=== PATIENT | female | born 1960 | race Caucasian/White ===

== ENCOUNTER → 2018-07-01 | Outpatient (CLI) | payer OTHER ==
--- NOTE | 2018-07-01 18:09 | Diagnostic Imaging Report ---
Exam: Right hip 2 views History: Pain Comparison: None. Findings: No fracture or malalignment. 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 No abnormal soft tissue calcification or soft tissue defect. Impression: No acute osseous abnormality Signed by: Dr. Ashok Morales M.D. on 07/01/2018 6:05 PM
== END ==
LOC: RAD 16:26
PROVIDERS: ATTEND Internal Medicine
DX: M25.551 Pain in right hip (principal)

== ENCOUNTER → 2019-07-11 | Outpatient (CLI) | payer OTHER ==
--- NOTE | 2019-07-11 15:18 | Diagnostic Imaging Report ---
Exam: PA and lateral chest radiograph Clinical history: Pneumonia Findings: Left upper lobe opacity is noted most consistent with pneumonitis. The right lung appears clear. The cardiac size is within normal limits. The regional osseous structures are unremarkable. Signed by: Dr. Dakota Courtney MD on 07/11/2019 3:15 PM
== END ==
LOC: RAD 14:32
PROVIDERS: ATTEND Internal Medicine
DX: J18.9 Pneumonia, unspecified organism (principal)
CPT/HCPCS: 71046

== ENCOUNTER → 2019-08-01 | Outpatient (CLI) | payer OTHER ==
--- NOTE | 2019-08-01 16:12 | Diagnostic Imaging Report ---
TECHNIQUE: Frontal and lateral views of the chest. INDICATION: ^PNEUMONIA FOLLOW UP COMPARISON: 07/11/2019 IMPRESSION: Lines and hardware: None. Heart and mediastinum: Normal cardiomediastinal silhouette. Lungs and pleura: No focal airspace consolidation. Left basilar atelectasis. No pleural effusion. No pneumothorax. Soft tissues and bones: No acute bony abnormality. Signed by: Michael Nayak MD on 08/01/2019 4:09 PM
== END ==
LOC: RAD 15:16
PROVIDERS: ATTEND Internal Medicine
DX: J18.9 Pneumonia, unspecified organism (principal)
CPT/HCPCS: 71046

== ENCOUNTER → 2020-02-27 | Outpatient (CLI) | payer OTHER | LOC: MAMMO 08:56 | PROVIDERS: ATTEND Internal Medicine | DX: Z12.31 Encounter for screening mammogram for malignant neoplasm of breast (principal) | CPT/HCPCS: 77067 ==